=== PATIENT | female | born 1965 | race Caucasian/White ===

== ENCOUNTER 2019-12-31 09:03 | Day surgery (SDC) | payer OTHER ==
[~2019-12-31] VITALS: Ht 158.8 cm; Wt 82.5 kg
[2019-12-31 09:43] VITALS: BP 127/79; PULSE 77; TEMP 98.6
[2019-12-31] MEDS ORDERED: SYNTHROID0.075 MG/T PO (09:51)
--- NOTE | 2019-12-31 09:51 | NUR ---
TO RM AT 0910- CALL LIGHT IN REACH NEREYDA WILL GAS [employer] MECHANIC HELPER PATIENT UPON DISCHARGE
[2019-12-31 11:05] VITALS: BP 112/85; PULSE 77; TEMP 97.7
--- NOTE | 2019-12-31 11:05 | NUR ---
TO RM 7 PER CART FROM ENDOSCOPY. ALERT ORIENTED X3, AMBULATED TO RECLINER WITH ASSIST. TALKING WITH STAFF. RECEIVED WATER AND JELLO. SWALLOWING WITHOUT DIFFICULTY. DR MENDOZA TALKED WITH PATIENT.
[2019-12-31 11:20] VITALS: BP 118/84; PULSE 77
--- NOTE | 2019-12-31 11:20 | NUR ---
TOLERATED PO WELL. RECEIVED CRANBERRY JUICE.
[2019-12-31 11:35] VITALS: BP 119/74; PULSE 72
--- NOTE | 2019-12-31 11:35 | NUR ---
DRANK 100% OF JUICE. CALLED FOR RIDE HOME.
--- NOTE | 2019-12-31 11:40 | NUR ---
RECEIVED DISCHARGE INSTRUCTIONS AND VERBALIZED UNDERSTANDING. DISCONTINUED IV AND INT- CATHETER INTACT. PATIENT GETTING DRESSED.
--- NOTE | 2019-12-31 11:50 | NUR ---
DISCHARGED PER WC BY NURSING STAFF TO PRIVATE CAR IN CARE OF - NEREYDAShiela
== END 2019-12-31 11:51 | disposition home or self-care (01) ==
LOC: SDCO 09:03
DX: R10.13 Epigastric pain (principal); R10.11 Right upper quadrant pain; K76.0 Fatty (change of) liver, not elsewhere classified; Z79.899 Other long term (current) drug therapy
CPT/HCPCS: J2250; J2405; J3010; J7030